=== PATIENT | male | born 1965 | race Caucasian/White ===

== ENCOUNTER 2022-09-21 14:11 | Emergency (ER) | payer OTHER, SELFPAY ==
[2022-09-21 14:32] VITALS: BP 156/114; PULSE 86; RESP 18; TEMP 36.1; O2SAT 97; BMI 25.0
--- NOTE | 2022-09-21 17:18 | ED.URI ---
HPI - URI/Sore Throat General Time Seen by Provider: 17:18 Date Seen: 09/21/22 Chief Complaint: Cough Stated Complaint: Coughed up blood Time Seen by Provider: 09/21/22 17:18 Source: patient, RN notes reviewed and old records reviewed Mode of arrival: ambulatory Limitations: no limitations History of Present Illness HPI Narrative: Jaspreet is a very pleasant 57-year-old gentleman with history of recent influenza a exposure who comes to the emergency room for evaluation regarding throat irritation and hoarseness as well as coughing bright red blood. Patient notes that he has had irritation at the base of his neck below his Sachin's apple for approximately 2 months. He thought this was perhaps because he has recently switched to a different work environment. He started wearing a turtle mac as it was cold there and thought that maybe he had improvement. He then started losing his voice approximately a month ago. He denies a fever or chills at that time and denies difficulty with swallowing. Two weeks ago he had the onset of a cough in which she would cough extensively for 30-40 seconds. He notes that has been improving although his voice still has not returned. He notes today he coughed up some bright red blood in his sputum. He occasionally feels like he is ?losing his breath?. Today he had the blood in his sputum happen again. He also had a bloody nose today which he thought may be why he had this happen. Patient denies tobacco use, pain at this time. He has no history of PE or DVT. Related Data Home Medications Medication Instructions Recorded Confirmed lisinopril 10 mg tablet 10 mg PO QDAY 09/21/22 09/21/22 simvastatin 20 mg tablet 20 mg PO QHS 09/21/22 09/21/22 Previous Rx's Medication Instructions Recorded omeprazole 40 mg capsule,delayed 40 mg PO DAILY 14 days #14 caps 09/21/22 release prednisone 20 mg tablet 20 mg PO BID 3 days #6 tabs 09/21/22 Allergies Allergy/AdvReac Type Severity Reaction Status Date / Time No Known Drug Allergies Allergy Verified 09/21/22 14:35 Review of Systems Status of ROS: Reports: 10 or more systems reviewed and unremarkable except as noted in History and below Const: Denies: fever or chills ENMT: Reports: hoarseness; Denies: throat pain or neck pain Cardio: Reports: shortness of breath with exertion (Occasionally and transient); Denies: chest pain or palpitations Resp: Reports: shortness of breath (Occasionally and transient) and cough; Denies: wheezing GI: Denies: abdominal pain, nausea or vomiting : Denies: painful urination Musculo: Denies: neck pain Neuro: Denies: headache Allergy/Immuno: Denies: wheezing Exam Narrative: Exam Narrative: Patient is alert and oriented. Very pleasant. No acute distress. Eyes are clear. Oral cavity with moist mucous membranes. Neck is supple no lymphadenopathy. Heart with a regular rate and rhythm and lungs are clear in all lung harrison. Moving all extremities. No evidence of lower extremity edema. Const: Vital Signs, click to edit/add: Vital Signs - 24 hr 09/21/22 14:32 09/21/22 18:40 Temperature 97 F L Pulse Rate [Pulse Oximeter] 86 87 Respiratory Rate 18 Blood Pressure [Ri ght Upper Arm] 156/114 H 169/116 H Pulse Oximetry 97 99 Oxygen Delivery Me thod Room Air Room Air Documenting provider has reviewed patient's vital signs: yes Course Course Hospital Course: We talked about various approaches to this gentleman's issues. First he has had hoarseness and irritation in the lower throat for at least 2 months. Today he is coughing up blood and has had a cough over the past 2 weeks which may be a separate entity. Initially we talked about CT scan of the neck and chest but eventually decided to do blood work to include a D-dimer, CBC as well as basic panel. Will also do a triple swab. Vital Signs Vital signs: Initial Vital Signs Temperature 97 F L 09/21/22 14:32 Temperature Source Temporal Artery Scan 09/21/22 14:32 Pulse Rate 86 09/21/22 14:32 Respiratory Rate 18 09/21/22 14:32 Blood Pressure 156/114 H 09/21/22 14:32 Blood Pressure Mean 128 09/21/22 14:32 Blood Pressure Position Supine 09/21/22 14:32 Pulse Oximetry 97 09/21/22 14:32 Oxygen Delivery Method 09/21/22 14:32 Vital Signs Temperature 97 F L 09/21/22 14:32 Pulse Rate 86 09/21/22 14:32 Respiratory Rate 18 09/21/22 14:32 Blood Pressure 156/114 H 09/21/22 14:32 Pulse Oximetry 97 09/21/22 14:32 Oxygen Delivery Method 09/21/22 14:32 Temperature 97 F L 09/21/22 14:32 Pulse Rate 87 09/21/22 18:40 Respiratory Rate 18 09/21/22 14:32 Blood Pressure 169/116 H 09/21/22 18:40 Pulse Oximetry 99 09/21/22 18:40 Oxygen Delivery Method 09/21/22 18:40 MDM - URI/Sore Throat MDM Narrative Medical decision making narrative: 1. Hoarseness-this is been ongoing for 2 more months with irritation. Patient has no stridor or other abnormality. Initially I had considered doing CT but I think a better approach would be to have patient see Dr. Dora buchanan for visualization of the vocal cords. Patient does admit that he has had more reflux recently and will place him on omeprazole 40 mg daily for 2 weeks. This prescription was sent to his pharmacy. Will also do a trial of prednisone 20 mg p.o. b.i.d. x3 days. Note that D-dimer was within normal limits. 2. Influenza a-patient tested positive for influenza negative for COVID and RSV. His tested positive last week. At this time and is hard to say when he had the onset of symptoms and therefore he is not a candidate for Tamiflu. He is advised to use ibuprofen or Tylenol as needed. Seek medical attention or return to the emergency room for worsening symptoms. O2 sats are within normal limits today. 3. Disposition-patient is discharged home. Will return as needed. Follow up with Dr. Dora buchanan at the [facility]. Medical Records Attestation: I reviewed the patient's medical records. Lab Data Attestation: I reviewed the patient's lab results. Labs: Lab Results 09/21/22 09/21/22 09/21/22 Range/Units 17:32 17:50 17:50 WBC 7.91 (4.50-11.00) K/uL RBC 4.76 (4.30-5.90) m/uL Hgb 15.2 (13.5-17.5) gm/dL Hct 44.1 (37.0-53.0) % MCV 93 (80-100) fL MCH 32 (26-34) pg MCHC 35 (32-36) gm/dL RDW Coeff of [place]raine 11.8 (11.5-15.5) % Plt Count 335 (140-440) K/uL Neut % (Auto) 62.6 (42.0-72.0) % Lymph % (Auto) 28.6 (20-44) % [place] % (Auto) 5.6 (0.0-11.0) % Eos % (Auto) 1.8 (0.0-7.0) % Baso % (Auto) 0.5 (0.0-3.0) % Neut # (Auto) 4.96 (1.7-7.0) K/uL Lymph # (Auto) 2.26 (0.90-2.90) K/uL [place] # (Auto) 0.40 (0.00-0.90) K/UL Eos # (Auto) 0.14 (0.00-0.50) K/uL Baso # (Auto) 0.04 (0.00-0.30) K/uL Abs Immat Gran (auto) 0.07 (0.00-0.30) K/uL Imm/Tot Granulo (auto) 0.9 % D-Dimer Quant (PE/DVT) < 0.27 (0.00-0.50) ug/ml Sodium (135-149) mmol/L Potassium (3.6-5.1) mmol/L Chloride (96-114) mmol/L Carbon Dioxide (20-32) mmol/L BUN (7-30) mg/dL Creatinine (0.5-1.5) mg/dL Estimated Creat Clear Estimated GFR ml/min Glucose (60-115) mg/dL Calcium (8.4-10.6) mg/dL C-Reactive Protein (0.5-1.0) mg/dL SARS-CoV-2 (PCR) Negative SARS-CoV-2 (Negative) Influenza Type A (PCR) POSITIVE PCR FLU A A (Negative) Influenza Type B (PCR) Negative PCR FLU B (Negative) RSV (PCR) Negative PCR RSV (Negative) 09/21/22 09/21/22 Range/Units 17:50 17:50 WBC (4.50-11.00) K/uL RBC (4.30-5.90) m/uL Hgb (13.5-17.5) gm/dL Hct (37.0-53.0) % MCV (80-100) fL MCH (26-34) pg MCHC (32-36) gm/dL RDW Coeff of [place] (11.5-15.5) % Plt Count (140-440) K/uL Neut % (Auto) (42.0-72.0) % Lymph % (Auto) (20-44) % [place] % (Auto) (0.0-11.0) % Eos % (Auto) (0.0-7.0) % Baso % (Auto) (0.0-3.0) % Neut # (Auto) (1.7-7.0) K/uL Lymph # (Auto) (0.90-2.90) K/uL [place] # (Auto) (0.00-0.90) K/UL Eos # (Auto) (0.00-0.50) K/uL Baso # (Auto) (0.00-0.30) K/uL Abs Immat Gran (auto) (0.00-0.30) K/uL Imm/Tot Granulo (auto) % D-Dimer Quant (PE/DVT) (0.00-0.50) ug/ml Sodium 144 (135-149) mmol/L Potassium 4.8 (3.6-5.1) mmol/L Chloride 107 (96-114) mmol/L Carbon Dioxide 32 (20-32) mmol/L BUN 17 (7-30) mg/dL Creatinine 1.0 (0.5-1.5) mg/dL Estimated Creat Clear 74.43 Estimated GFR 88 ml/min Glucose 93 (60-115) mg/dL Calcium 9.3 (8.4-10.6) mg/dL C-Reactive Protein < 0.5 L (0.5-1.0) mg/dL SARS-CoV-2 (PCR) (Negative) Influenza Type A (PCR) (Negative) Influenza Type B (PCR) (Negative) RSV (PCR) (Negative) Imaging Data Chest x-ray: My impression: Questionable increased perihilar fullness. Radiologist's impression: Lungs: Normal lung volume. No consolidation. The tracheobronchial tree and hilar structures are unremarkable. Pleura: No pleural effusion or pneumothorax. Heart and Mediastinum: Normal heart size. The great vessels of the thorax are unremarkable. Bones: No acute displaced osseous process. IMPRESSION: No consolidation. Discharge Plan Discharge Clinical Impression: Influenza A, Hoarseness Patient Disposition: Home, Self-Care Condition: Improved Additional Instructions: 1. We will do a trial of prednisone for 3 days to see if that changes the quality of your voice. I still want her to follow up with Dr. Delgadillo for consult as you have had this going on for quite some time. He can be reached for appointments at the [facility] [phone]. I will have you do a trial of omeprazole 40 mg or 2 tablets daily for 2 weeks. Often times hoarseness is secondary to reflux. 2. In regards to influenza, ibuprofen or Tylenol as needed. Recommend rest. Seek medical attention for worsening symptoms or difficulty breathing. Prescriptions: New prednisone 20 mg tablet 20 mg PO BID 3 Days Qty: 6 0RF omeprazole 40 mg capsule,delayed release(DR/EC) 40 mg PO DAILY 14 Days Qty: 14 0RF No Action simvastatin 20 mg tablet 20 mg PO QHS lisinopril 10 mg tablet 10 mg PO QDAY Follow Up/Referrals: Kiran Stafford MD [Staff Physician] - Stand Alone Forms: [employer] Info Instructions
[2022-09-21 17:54] LABS: Basophils Absolute Auto 0.04 K/uL (0.00-0.30); Basophils Percent Auto 0.5 % (0.0-3.0); Eosinophils Absolute Auto 0.14 K/uL (0.00-0.50); Eosinophils Percent Auto 1.8 % (0.0-7.0); Hematocrit 44.1 % (37.0-53.0); Hemoglobin* 15.2 gm/dL (13.5-17.5); Immature Granulocytes Abs Auto 0.07 K/uL (0.00-0.30); Immature Granulocytes Pct Auto 0.9 %; Lymphocytes Absolute Auto 2.26 K/uL (0.90-2.90); Lymphocytes Percent Auto 28.6 % (20-44); Mean Corpuscular HGB Conc 35 gm/dL (32-36); Mean Corpuscular Hemoglobin 32 pg (26-34); Mean Corpuscular Volume 93 fL (80-100); Monocytes Percent Auto 5.6 % (0.0-11.0); Neutrophils Absolute Auto 4.96 K/uL (1.7-7.0); Neutrophils Percent Auto 62.6 % (42.0-72.0); Platelet Count* 335 K/uL (140-440); RDW Coefficient of Variation % 11.8 % (11.5-15.5); Red Blood Count 4.76 m/uL (4.30-5.90); White Blood Count* 7.91 K/uL (4.50-11.00)
[2022-09-21 17:56] LABS: Slide Review Reflex No
[2022-09-21 18:11] LABS: Chloride* 107 mmol/L (96-114); Potassium* 4.8 mmol/L (3.6-5.1); Sodium* 144 mmol/L (135-149)
[2022-09-21 18:14] LABS: Est. Creatinine Clearance* 74.43; Estimated Glomerular Filt Rate 88 ml/min
[2022-09-21 18:15] LABS: Blood Urea Nitrogen* 17 mg/dL (7-30); Calcium* 9.3 mg/dL (8.4-10.6); Carbon Dioxide* 32 mmol/L (20-32); Glucose* 93 mg/dL (60-115)
[2022-09-21 18:17] LABS: D Dimer Quantitative* < 0.27 ug/ml (0.00-0.50)
[2022-09-21 18:23] LABS: C Reactive Protein* < 0.5 mg/dL (0.5-1.0)
--- NOTE | 2022-09-21 18:29 | CRLHL7_ITS ---
For Patients: As a result of the Cures Act, medical imaging exams and procedure reports are released immediately into your electronic medical record. You may view this report before your referring provider. If you have questions, please contact your health care provider. INDICATION: Cough. TECHNIQUE: Chest 2 views. COMPARISON: None. FINDINGS: Lungs: Normal lung volume. No consolidation. The tracheobronchial tree and hilar structures are unremarkable. Pleura: No pleural effusion or pneumothorax. Heart and Mediastinum: Normal heart size. The great vessels of the thorax are unremarkable. Bones: No acute displaced osseous process. IMPRESSION: No consolidation. Dictated by Donny Hernandez MD @ 09/21/2022 7:16:51 PM (Electronically Signed)
[2022-09-21 18:40] VITALS: BP 169/116; PULSE 87; O2SAT 99
[2022-09-21 19:19] LABS: PCR FLU A POSITIVE PCR FLU A (Negative); PCR FLU B Negative PCR FLU B (Negative); PCR RSV Negative PCR RSV (Negative)
[2022-09-21 19:33] LABS: SARS PCR* Negative SARS-CoV-2 (Negative)
== END 2022-09-21 20:42 | disposition home or self-care (01) ==
PROVIDERS: Emergency Provider Family Medicine; PCP Family Medicine
DX: J10.1 Influenza due to other identified influenza virus with other respiratory manifestations (principal); R49.0 Dysphonia
CPT/HCPCS: 36415; 71046; 80048; 85025; 85379; 86140; 87502; 87634; 87635; 99283; 99284

== ENCOUNTER 2022-10-08 13:45 | Outpatient (CLI) | payer OTHER, SELFPAY ==
[2022-10-08 17:26] LABS: Cholesterol* 193 mg/dL (90-199); Triglycerides* 115 mg/dL (40-149)
[2022-10-08 17:27] LABS: HDL Cholesterol* 43 mg/dL (>=40); LDL Cholesterol Calculated 127 mg/dL (<100)
== END 2022-10-08 13:46 | disposition home or self-care (01) ==
PROVIDERS: PCP Family Medicine; Visit Provider Family Medicine
DX: E78.5 Hyperlipidemia, unspecified (principal); Z12.5 Encounter for screening for malignant neoplasm of prostate
CPT/HCPCS: 80061; 84153

== ENCOUNTER 2022-12-24 08:19 | Outpatient (CLI) | payer OTHER, SELFPAY | END 2022-12-24 08:20 | disposition home or self-care (01) | LOC: NFLDREF 08:20 | PROVIDERS: PCP Family Medicine; Visit Provider Family Medicine | DX: I10 Essential (primary) hypertension (principal); E78.5 Hyperlipidemia, unspecified | CPT/HCPCS: 80048 ==

== ENCOUNTER 2023-12-30 09:24 | Outpatient (CLI) | payer OTHER, SELFPAY | END 2023-12-30 09:25 | disposition home or self-care (01) | PROVIDERS: PCP Family Medicine; Visit Provider Family Medicine | DX: Z00.00 Encounter for general adult medical examination without abnormal findings (principal); E78.2 Mixed hyperlipidemia; I10 Essential (primary) hypertension; Z12.5 Encounter for screening for malignant neoplasm of prostate | CPT/HCPCS: 80048; 80061; 84460; G0103 ==

== ENCOUNTER 2024-06-01 18:32 | Emergency (ER) | payer OTHER, SELFPAY ==
[2024-06-01 18:44] VITALS: BP 115/84; PULSE 71; RESP 18; TEMP 36.4; O2SAT 98; BMI 24.3
--- NOTE | 2024-06-01 18:58 | ED.GENADULT ---
HPI - General Adult General Chief complaint: Hypotension Stated complaint: low blood pressure Time Seen by Provider: 06/01/24 18:38 Source: patient Mode of arrival: ambulatory Limitations: no limitations History of Present Illness HPI narrative: 59-year-old male presenting today with low blood pressure. Patient states that he has been working with his primary care provider to get his blood pressure is under control. He is currently on triamterene, metoprolol, and losartan. He states that for the last couple of weeks he has been feeling lightheaded especially if he has been crouching down doing work and then stands up quickly. He states that today his blood pressures went to 77 systolic and he was told to come into the ER. Looking through his blood pressures for the last couple of weeks, his systolic blood pressure has been consistently in the 90s to low 100s. He takes his medication at 4:00 a.m. as he works nights. He denies chest pain or shortness of breath. He denies headache or abdominal pain. He denies feeling lightheaded unless, again, he has a significant postural change. Related Data Previous Rx's ?Medication ?Instructions ?Recorded omeprazole 20 mg capsule,delayed 20 mg PO QDAY #90 caps 12/30/23 release simvastatin 20 mg tablet 20 mg PO QHS #90 tabs 01/12/24 sildenafil 100 mg tablet (Viagra) 50 - 100 mg (0.5 - 1 x 100 mg) PO 03/13/24 QDAY PRN sexual activity #6 tabs metoprolol succinate 200 mg 200 mg PO QDAY #90 tabs 05/04/24 tablet,extended release 24 hr triamterene 37.5 1 cap PO QDAY #90 caps 05/04/24 mg-hydrochlorothiazide 25 mg capsule losartan 100 mg tablet 100 mg PO QDAY #90 tabs 05/22/24 Allergies Allergy/AdvReac Type Severity Reaction Status Date / Time lisinopril Allergy Mild Verified 05/22/24 09:54 Review of Systems Status of ROS: Reports: 10 or more systems reviewed and unremarkable except as noted in History and below [facility] Medical History Erectile dysfunction ?N52.9 - Male erectile dysfunction, unspecified (ICD-10) Calculus of kidney ?N20.0 - Calculus of kidney (ICD-10) Mixed hyperlipidemia ?E78.2 - Mixed hyperlipidemia (ICD-10) Primary hypertension ?I10 - Essential (primary) hypertension (ICD-10) Influenza A ?J10.1 - Influenza due to other identified influenza virus with other respiratory manifestations (ICD-10) GERD (gastroesophageal reflux disease) ?K21.9 - Gastro-esophageal reflux disease without esophagitis (ICD-10) Seasonal allergies (12/01/12) ?J30.2 - Other seasonal allergic rhinitis (ICD-10) Social History Narrative: [employer] Smoking Status: Never smoker Do you use any of these nicotine containing products: None Second hand tobacco smoke exposure: No How often do you have a drink containing alcohol: never AUDIT-C Alcohol total score: 0 Little interest or pleasure in doing things: not at all Feeling down, depressed, or hopeless: not at all Exam Narrative: Exam Narrative: Well-nourished well-developed patient in no acute distress. Alert and oriented. Answers questions appropriately. Mood and affect are appropriate. Thoughts are goal oriented and rational. No tangential or magical thinking noted. Patient speaks in full sentences without needing to catch his breath. Blood pressure 115/84. HEENT: Normocephalic atraumatic. Pupils are equally round reactive to light. Extraocular muscles are intact. Conjunctivae are moist without any icterus noted. Moist mucous membranes. Cardiovascular: Heart is regular rate and rhythm S1 and S2 are present without any murmurs. Lungs: Clear to auscultation bilaterally no wheezes rhonchi or rales are appreciated. Patient takes deep breaths without any discomfort. Abdomen: Soft and nontender nondistended with normal bowel sounds. Extremities: Bilateral lower extremities are without edema. Skin: Well perfused . Const: Vital Signs, click to edit/add: Vital Signs - 24 hr 06/01/24 18:44 Temperature 97.6 F Pulse Rate [Pulse Oximeter] 71 Respiratory Rate 18 Blood Pressure [Ri ght Upper Arm] 115/84 Pulse Oximetry 98 Oxygen Delivery Me thod Room Air Course Course ED Course: I went over patient's medications with him: He is taking Losartan 100 mg Metoprolol 200 mg extended release tablet Triamterene hydrochlorothiazide 37.5-25 mg daily Asked the patient to hold all of his medications this evening. Will resume with losartan 50 mg daily and the metoprolol 100 mg daily. Will continue triamterene hydrochlorothiazide as is. Patient will call his doctor on Tuesday morning and will continue to monitor his blood pressures over the weekend. He hold his medications completely or return to the ER if his blood pressure continue to be low. Vital Signs Vital signs: Initial Vital Signs Temperature 97.6 F 06/01/24 18:44 Temperature Source Temporal Artery Scan 06/01/24 18:44 Pulse Rate 71 06/01/24 18:44 Respiratory Rate 18 06/01/24 18:44 Blood Pressure 115/84 06/01/24 18:44 Blood Pressure Mean 94 06/01/24 18:44 Pulse Oximetry 98 06/01/24 18:44 Oxygen Delivery Method Room Air 06/01/24 18:44 Vital Signs Temperature 97.6 F 06/01/24 18:44 Pulse Rate 71 06/01/24 18:44 Respiratory Rate 18 06/01/24 18:44 Blood Pressure 115/84 06/01/24 18:44 Pulse Oximetry 98 06/01/24 18:44 Oxygen Delivery Method Room Air 06/01/24 18:44 Temperature 97.6 F 06/01/24 18:44 Pulse Rate 71 06/01/24 18:44 Respiratory Rate 18 06/01/24 18:44 Blood Pressure 115/84 06/01/24 18:44 Pulse Oximetry 98 06/01/24 18:44 Oxygen Delivery Method Room Air 06/01/24 18:44 Medical Decision Making [facility] Narrative Medical decision making narrative: 59-year-old male presenting with hypotension present for a couple of weeks now. Worsened today. Plan per above I do believe that his hypotension secondary to over medication. Patient does not have any signs or symptoms of infection noted on history or exam would be causing his symptoms. This is further strengthen by the fact that his blood pressures have been quite low for approximately 2 weeks. And decreased significantly once he was started on the losartan. Discharge Plan Discharge Clinical Impression: Acute hypotension Patient Disposition: Home, Self-Care Condition: Stable Additional Instructions: Hold all of your medications for 24 hours. (do not take your next dose) Resume with losartan 50 mg daily and metoprolol 100 mg daily. (half tablet of both of these medications set of a full tablet). Continue triamterene/hydrochlorothiazide as is. Continue to monitor your blood pressures over the weekend and call your doctor on Tuesday morning. If your blood pressures continue to be low, with a systolic blood pressure of less than 100 - stop taking all of your medications and return to the ER. Prescriptions: No Action metoprolol succinate 200 mg tablet extended release 24 hr 200 mg PO QDAY Qty: 90 3RF triamterene-hydrochlorothiazid 37.5-25 mg capsule 1 cap PO QDAY Qty: 90 1RF omeprazole 20 mg capsule,delayed release(DR/EC) 20 mg PO QDAY Qty: 90 3RF simvastatin 20 mg tablet 20 mg PO QHS Qty: 90 3RF sildenafil [Viagra] 100 mg tablet 50 - 100 mg PO QDAY PRN (Reason: sexual activity) Qty: 6 8RF Rx Instructions: administer 30 minutes to 4 hours before activity losartan 100 mg tablet 100 mg PO QDAY Qty: 90 0RF Follow Up/Referrals: Donny Valentin MD [Primary Care Provider] - Stand Alone Forms: [employer] Info Instructions
--- NOTE | 2024-06-01 19:17 | ED.NURSE ---
Pt denied any pain at this time.
== END 2024-06-01 19:17 | disposition home or self-care (01) ==
PROVIDERS: Emergency Provider Family Medicine; PCP Family Medicine
DX: I95.9 Hypotension, unspecified (principal)
CPT/HCPCS: 99283; 99284

== ENCOUNTER 2024-07-20 12:10 | Outpatient (CLI) | payer OTHER, SELFPAY | END 2024-07-20 12:11 | disposition home or self-care (01) | PROVIDERS: PCP Family Medicine; Visit Provider Family Medicine | DX: E78.2 Mixed hyperlipidemia (principal); I10 Essential (primary) hypertension | CPT/HCPCS: 80048 ==

== ENCOUNTER 2024-10-19 12:02 | Outpatient (CLI) | payer OTHER, SELFPAY | END 2024-10-19 12:03 | disposition home or self-care (01) | LOC: FBOREF 12:02 | PROVIDERS: PCP Family Medicine; Visit Provider Family Medicine | DX: I10 Essential (primary) hypertension (principal) | CPT/HCPCS: 80048 ==

== ENCOUNTER 2024-11-23 11:40 | Outpatient (CLI) | payer OTHER, SELFPAY | END 2024-11-23 11:41 | disposition home or self-care (01) | LOC: NFLDREF 11-24 03:31 | PROVIDERS: PCP Family Medicine; Referring Provider Family Medicine; Visit Provider Family Medicine | DX: I10 Essential (primary) hypertension (principal) | CPT/HCPCS: 80048 ==

== ENCOUNTER 2025-03-08 11:42 | Outpatient (CLI) | payer OTHER, SELFPAY | END 2025-03-08 11:43 | disposition home or self-care (01) | PROVIDERS: PCP Family Medicine; Visit Provider Family Medicine | DX: E78.2 Mixed hyperlipidemia (principal); I10 Essential (primary) hypertension; Z12.5 Encounter for screening for malignant neoplasm of prostate | CPT/HCPCS: 80048; 80061; 84460; G0103 ==